=== PATIENT | male | born 1995 | race Caucasian/White ===

== ENCOUNTER 2019-07-20 10:41 | Emergency (ER) | payer BC ==
[~2019-07-20] VITALS: Ht 182.9 cm; Wt 95.3 kg
[2019-07-20 11:02] VITALS: BP 134/77
[2019-07-20] MEDS ORDERED: CHLO25CA22 PO (11:10)
[2019-07-20] MEDS ORDERED: BUPR150T5 PO (11:10)
[2019-07-20] MEDS ORDERED: LITH150C PO (11:10)
--- NOTE | 2019-07-20 11:49 | NUR ---
Patient discharged to home in stable condition. Written and verbal after care instructions given. Patient verbalizes understanding of instruction.
== END 2019-07-20 11:51 | disposition home or self-care (01) ==
LOC: ER 10:41
DX: H10.89 Other conjunctivitis (principal); B99.8 Other infectious disease; F31.9 Bipolar disorder, unspecified; F41.9 Anxiety disorder, unspecified; F19.10 Other psychoactive substance abuse, uncomplicated; Z79.899 Other long term (current) drug therapy